=== PATIENT | male | born 1990 | race African-American/Black ===

== ENCOUNTER 2020-04-29 13:38 | Emergency (ER) | payer SELFPAY ==
--- NOTE | 2020-04-29 15:44 | EDPHYS ---
Physician Documentation [facility] Name: Everette Malcolm III Age: 30 yrs Sex: Male : 1990 Arrival Date: 04/29/2020 Time: 13:39 Bed 13 Private MD: ED Physician Sukumar Romano HPI: 04/29 15:37 This 30 yrs old Black Male presents to ER via Ambulatory with complaints of Toothache. rn 15:37 The patient presents with pain. The problem is located in the mouth. Onset: The rn symptoms/episode began/occurred 3 day(s) ago. Duration: The symptoms are continuous. Modifying factors: The symptoms are alleviated by nothing, the symptoms are aggravated by chewing, food. Severity of symptoms: At their worst the symptoms were moderate, in the emergency department the symptoms are unchanged. The patient has experienced similar episodes in the past. Reports chronically bad teeth, worse for last few days, taking "too many tylenol" over last 3 days, unsure exact number, reports not here for that and is not going to stop taking tylenol. Denies suicidal ideation. Reports seen by dentist and given abx and tylenol #3, has oral surgeon appt tomorrow. . Historical: - Allergies: 13:52 No Known Allergies; ll1 - PSHx: 13:52 None; ll1 - Immunization history:: Flu vaccine is not up to date. - Social history:: Smoking status: Patient reports use of chewing tobacco. Patient denies any tobacco usage or history of. - Family history:: not pertinent. - Hospitalizations: : No recent hospitalization is reported. ROS: 15:37 Constitutional: Negative for fever, chills, and weight loss, ENT: + dental pain Neck: rn Negative for injury, pain, and swelling, Cardiovascular: Negative for chest pain, palpitations, and edema, Respiratory: Negative for shortness of breath, cough, wheezing, and pleuritic chest pain, Abdomen/GI: Negative for abdominal pain, nausea, vomiting, diarrhea, and constipation, MS/Extremity: Negative for injury and deformity, Skin: Negative for injury, rash, and discoloration, Neuro: Negative for headache, weakness, numbness, tingling, and seizure. Exam: 15:37 Constitutional: This is a well developed, well nourished patient who is awake, alert, rn and in no acute distress. Head/Face: Normocephalic, atraumatic. ENT: Poor dentition without focal abscess or drainage. Soft buccal spaces. MMM. Vital Signs: 13:49 BP 140 / 73; Pulse 63; Resp 17; Temp 98.8; Pulse Ox 100% ; Weight 81.65 kg; Height 6 ll1 ft. 2 in. (187.96 cm); Pain 8/10; 13:49 Body Mass Index 23.11 (81.65 kg, 187.96 cm) ll1 MDM: 15:29 Patient medically screened. rn 15:37 Differential diagnosis: dental caries, dental abscess. Data reviewed: vital signs, rn nurses notes, and as a result, I will discharge patient. Counseling: I had a detailed discussion with the patient and/or guardian regarding: the historical points, exam findings, and any diagnostic results supporting the discharge/admit diagnosis, the need for outpatient follow up, to return to the emergency department if symptoms worsen or persist or if there are any questions or concerns that arise at home. Special discussion:. ED course: Discussed with patient need for tylenol level and lfts, given large amount of tylenol in recent days, patient not interested, wants to go home, states has surgeon appt in AM and testing here "a waste of time" because he is "going home to take more tylenol". . Administered Medications: No medications were administered Disposition: 04/29/20 15:43 Patient left the facility after being seen by provider. Preliminary diagnosis is Dental caries. - Patient left due to unknown. - Condition is Stable. - Problem is an ongoing problem. - Symptoms are unchanged. Signatures: Sukumar Romano MD MD rn Lewis, Lynsay, RN RN ll1 Corrections: (The following items were deleted from the chart) 15:46 15:43 04/29/2020 15:43 Patient left the facility after being seen by provider. ll1 Preliminary diagnosis is Dental caries. Reason stated they are leaving due to unknown. Condition is Stable. Problem is an ongoing problem. Symptoms are unchanged. rn
--- NOTE | 2020-04-29 15:44 | ER ---
Nurse's Notes [facility] Name: Everette Malcolm III Age: 30 yrs Sex: Male : 1990 Arrival Date: 04/29/2020 Time: 13:39 Bed 13 Private MD: Diagnosis: Dental caries Presentation: 04/29 13:49 Chief complaint: Patient states: Bilateral upper jaw tooth pain for 1 week. States he ll1 has been taking too much Tylenol daily. 70+ pills since . 23 pills yesterday. Took for pain relief, no SI or HI. Coronavirus screen: Client denies travel out of the [place] in the last 14 days. At this time, the client does not indicate any symptoms associated with coronavirus-19. Ebola Screen: Patient denies travel to an Ebola-affected area in the 21 days before illness onset. Initial Sepsis Screen: Does the patient meet any 2 criteria? No. Patient's initial sepsis screen is negative. Does the patient have a suspected source of infection? Yes: Other: teeth infection. Risk Assessment: Do you want to hurt yourself or someone else? Patient reports no desire to harm self or others. Onset of symptoms was April 23, 2020. 13:49 Method Of Arrival: Ambulatory ll1 13:49 Acuity: LEODAN 3 ll1 Historical: - Allergies: 13:52 No Known Allergies; ll1 - PSHx: 13:52 None; ll1 - Immunization history:: Flu vaccine is not up to date. - Social history:: Smoking status: Patient reports use of chewing tobacco. Patient denies any tobacco usage or history of. - Family history:: not pertinent. - Hospitalizations: : No recent hospitalization is reported. Vital Signs: 13:49 BP 140 / 73; Pulse 63; Resp 17; Temp 98.8; Pulse Ox 100% ; Weight 81.65 kg; Height 6 ll1 ft. 2 in. (187.96 cm); Pain 8/10; 13:49 Body Mass Index 23.11 (81.65 kg, 187.96 cm) ll1 ED Course: 13:39 Patient arrived in ED. as 13:52 Triage completed. ll1 13:53 Arm band placed on. ll1 15:29 Sukumar Romano MD is Attending Physician. rn 15:31 Hammer, Jahala, RN is Primary Nurse. gurpreet Administered Medications: No medications were administered Outcome: 15:46 Patient left the ED. ll1 Signatures: Kaylie Pena Roman, MD MD rn Leal, Jahala, RN RN [id number] Kelechi Gilbert RN RN ll1
[2020-04-29 16:22] VITALS: BP 140/73; TEMP 98.8; O2SAT 100
== END 2020-04-29 15:46 | disposition left against medical advice (07) ==
LOC: ER 13:38
DX: K02.9 Dental caries, unspecified (principal); F17.220 Nicotine dependence, chewing tobacco, uncomplicated
CPT/HCPCS: 99281